=== PATIENT | female | born 1995 | race Caucasian/White ===

== ENCOUNTER 2020-08-06 15:07 | Emergency (ER) | payer SELFPAY ==
--- NOTE | 2020-08-06 15:43 | ER Document Report ---
ED Medical Screen (RME) - General Chief Complaint: Anxiety Stated Complaint: ANXIOUS Time Seen by Provider: 08/06/20 15:36 Notes: HPI: 25-year-old female presenting for suicidal ideation today. Brought by a friend. Denies alcohol or drugs. Patient is in the middle of a custody dubose. Has been depressed over the last 2 to 3 weeks. Has not had thoughts of harming herself previously but states today she did have thoughts of harming herself and did have a definite plan for how she would do so although she will not disclose that right now PHYSICAL EXAMINATION: Patient is very tearful and depressed and withdrawn. I did speak with the charge nurse about placement for the patient. I have greeted and performed a rapid initial assessment of this patient. A comprehensive ED assessment and evaluation of the patient, analysis of test results and completion of medical decision making process will be conducted by an additional ED providers. Physical Exam - Vital signs Vitals: Temp Pulse Resp BP Pulse Ox 98.7 F 97 16 124/87 H 99 08/06/20 15:12 08/06/20 15:12 08/06/20 15:12 08/06/20 15:12 08/06/20 15:12 Course - Vital Signs Vital signs: Temp Pulse Resp BP Pulse Ox 98.7 F 97 16 124/87 H 99 08/06/20 15:12 08/06/20 15:12 08/06/20 15:12 08/06/20 15:12 08/06/20 15:12
[2020-08-06 16:21] LABS: ABSOLUTE BASOPHILS # (AUTO) 0.1 10^3/uL (0.0-0.2); ABSOLUTE LYMPHOCYTES (AUTO) 1.6 10^3/uL (0.5-4.7); ABSOLUTE MONOCYTES (AUTO) 0.6 10^3/uL (0.1-1.4); ABSOLUTE NEUT (AUTO) 6.2 10^3/uL (1.7-8.2); BASOPHILS % (AUTO) 0.8 % (0-2); EOSINOPHILS % (AUTO) 0.2 % (0-6); HEMATOCRIT 43.1 % (36.0-47.0); HEMOGLOBIN 15.6 g/dL (12.0-15.5); LYMPHOCYTES % (AUTO) 18.6 % (13-45); MEAN CORPUSCULAR HGB CONC 36.1 g/dL (32.0-36.0); MEAN CORPUSCULAR VOLUME 89 fl (80-97); MONOCYTES % (AUTO) 6.9 % (3-13); PLATELET COUNT 232 10^3/uL (150-450); RED BLOOD COUNT 4.87 10^6/uL (3.72-5.28); RED CELL DISTRIBUTION WIDTH 12.9 % (11.5-14.0); SEGMENTED NEUTROPHILS % (AUTO) 73.5 % (42-78); TOTAL CELLS COUNTED % (AUTO) 100 %; WHITE BLOOD COUNT 8.4 10^3/uL (4.0-10.5)
[2020-08-06 16:38] LABS: ALBUMIN 4.8 g/dL (3.5-5.0); ALKALINE PHOSPHATASE 64 U/L (38-126); ANION GAP 9 (5-19); ASPARTATE AMINO TRANSFERASE 25 U/L (14-36); BILIRUBIN,DIRECT 0.1 mg/dL (0.0-0.4); BILIRUBIN,TOTAL 0.7 mg/dL (0.2-1.3); BLOOD UREA NITROGEN 13 mg/dL (7-20); CALCIUM 9.8 mg/dL (8.4-10.2); CARBON DIOXIDE 25 mmol/L (22-30); CHLORIDE 105 mmol/L (98-107); GLUCOSE 106 mg/dL (75-110); POTASSIUM 4.1 mmol/L (3.6-5.0); TOTAL PROTEIN 7.4 g/dL (6.3-8.2)
[2020-08-06 16:40] LABS: ACETAMINOPHEN < 10 ug/mL (10-30); ALCOHOL < 10 mg/dL (NONE DETECTED); SALICYLATE < 1.0 mg/dL (2.0-20.0)
[2020-08-06 16:44] LABS: APPEARANCE,URINE CLOUDY; BILIRUBIN,URINE NEGATIVE (NEGATIVE); COLOR,URINE YELLOW; GLUCOSE, URINE NEGATIVE (NEGATIVE); KETONES,URINE 20 mg/dL (NEGATIVE); LEUKOCYTE ESTERASE,URINE NEGATIVE (NEGATIVE); NITRITE,URINE NEGATIVE (NEGATIVE); PROTEIN,URINE 30 mg/dL (NEGATIVE); URINE SPECIFIC GRAVITY 1.031; UROBILINOGEN,URINE NEGATIVE mg/dL (<2.0)
[2020-08-06 16:50] LABS: URINE AMPHETAMINES SCREEN NEGATIVE; URINE BARBITURATES SCREEN NEGATIVE; URINE BENZODIAZEPINES SCREEN NEGATIVE; URINE COCAINE SCREEN NEGATIVE; URINE MARIJUANA (THC) SCREEN NEGATIVE; URINE METHADONE SCREEN NEGATIVE; URINE PHENCYCLIDINE SCREEN NEGATIVE
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
[2020-08-06] MEDS: FLUOXETINE HCL 20 MG CAPSULE PO SCH (18:46)
[2020-08-06] MEDS ORDERED: HYDROXYZINE PAMOATE 25 MG CAPSULE PO ONE (22:14)
[2020-08-06] MEDS: CLONIDINE HCL 0.1 MG TABLET PO SCH (22:14)
--- NOTE | 2020-08-06 23:23 | ER Document Report ---
Doctor's Note Notes: 08/06/20 23:22 Assumed care of patient. She is on IVC for suicidal ideation with plan. Was approached by nursing staff because clonidine patch ordered for sleep with the patient with a blood pressure of 102 systolic and a heart rate of 52. Asked him to hold the clonidine patch. We will go ahead and give Vistaril. We will continue to monitor patient closely. 08/07/20 06:26 Patient has done well overnight in the emergency department. She is slept well with Vistaril. We will continue to monitor and have the behavioral health team see her. We will turn the patient over to oncoming LAILA for further care.
[2020-08-07] MEDS: FLUOXETINE HCL 20 MG CAPSULE PO SCH (10:56)
--- NOTE | 2020-08-07 17:24 | ER Document Report ---
Doctor's Note Notes: 08/07/20 17:19 PHYSICAL EXAMINATION: GENERAL: Appears well, healthy, well-nourished, no acute distress. LUNGS: Equal breath sounds bilaterally and clear to auscultation. No wheezes rales or rhonchi. CARDIOVASCULAR: S1-S2, regular rate, regular rhythm. Radial pulses 2+, normal. ABDOMEN: Normoactive bowel sounds. Soft, nontender, no guarding, no rebound tenderness, and no masses palpated. PSYCH: Quiet, not very talkative. Patient denies any suicidal or homicidal ideation. Mental health would like to give the patient 1 more night and reevaluate in the morning. Labs reviewed. 08/07/20 20:37 Mental health has evaluated the patient. They want to continue Prozac 20 mg daily, add Zyprexa 2.5 mg daily, and add Vistaril nightly as needed for sleep.
--- NOTE | 2020-08-07 18:06 | EKG REPORT ---
SEVERITY:- ABNORMAL ECG - SINUS ARRHYTHMIA, RATE [id number] PROBABLE LEFT ATRIAL ABNORMALITY NONSPECIFIC T ABNORMALITIES, INFERIOR LEADS : Confirmed by: Cisco Hernandez MD 07-Aug-2020 18:05:33
[2020-08-07] MEDS ORDERED: HYDROXYZINE PAMOATE 25 MG CAPSULE PO PRN (20:36)
[2020-08-07] MEDS ORDERED: OLANZAPINE 2.5 MG TABLET PO SCH (20:45)
[2020-08-07] MEDS: CLONIDINE HCL 0.1 MG TABLET PO SCH (22:44)
[2020-08-08 01:28] VITALS: BP 98/52
--- NOTE | 2020-08-08 03:17 | ER Document Report ---
Doctor's Note Notes: 08/08/20 03:15 [employer] is here to escort the patient over to [facility] since she is on IVC papers. This MD went to the patient's bedside and examined the patient. Patient is awake and alert. Patient is alert and oriented x3. Heart sounds are normal. Lung sounds are unremarkable. Patient appears to be in no acute distress and appears stable for transfer.
--- NOTE | 2020-08-08 07:51 | EKG REPORT ---
SEVERITY:- OTHERWISE NORMAL ECG - SINUS BRADYCARDIA : Confirmed by: Rosaura Valentin 08-Aug-2020 07:51:04
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
== END 2020-08-08 03:18 ==
LOC: ER 15:07
DX: R45.851 Suicidal ideations (principal); F32.9 Major depressive disorder, single episode, unspecified; F41.9 Anxiety disorder, unspecified
CPT/HCPCS: 93005 ×2; 99285; 36415; 80307 ×4; 85025; 81025; 80053; 81001; 93010 ×2; J3490